=== PATIENT | female | born 1990 | race American Indian/Alaskan Native ===

== ENCOUNTER 2018-01-18 15:59 | Emergency (ER) | payer MEDICARE ==
[2018-01-18 16:07] VITALS: BP 116/72
--- NOTE | 2018-01-18 17:02 | Emergency Department Report ---
ED Rash HPI - HPI Chief Complaint: Skin Rash Stated Complaint: RASH ON LEGS/THIGHS Time Seen by Provider: 01/18/18 16:12 Duration: 1 Day Location: Lower Extremities Suspected Cause: Other (used near to shave and now has a red pruritic rash to her legs. Patient also requests that we take her Cano and 1 test on it to see what she is allergic to) Rash Symptoms: Yes Itching, No Facial Swelling, No Tongue/Oral Swelling, No Wheezing/Dyspnea, No Peeling, No Blistering, No Fever, No Lightheaded, No Malaise, No Myalgias Severity: mild ED Review of Systems ROS: Stated complaint: RASH ON LEGS/THIGHS Other details as noted in HPI Constitutional: denies: chills, fever Eyes: denies: eye pain, eye discharge, vision change ENT: denies: ear pain, throat pain Respiratory: denies: cough, shortness of breath, wheezing Cardiovascular: denies: chest pain, palpitations Endocrine: no symptoms reported Gastrointestinal: denies: abdominal pain, nausea, diarrhea Genitourinary: denies: urgency, dysuria, discharge Musculoskeletal: denies: back pain, joint swelling, arthralgia Skin: rash. denies: lesions Neurological: denies: headache, weakness, paresthesias Psychiatric: denies: anxiety, depression Hematological/Lymphatic: denies: easy bleeding, easy bruising ED Past Medical Hx - Past Medical History Hx Congestive Heart Failure: No Hx Diabetes: No Hx Headaches / Migraines: Yes (migraines) Hx Asthma: No Hx COPD: No - Surgical History Past Surgical History?: No - Social History Smoking Status: Never Smoker Substance Use Type: None - Medications Home Medications: Home Medications Medication Instructions Recorded Confirmed Last Taken Type Docusate Sodium [Colace] 100 mg PO BID PRN #60 capsule 05/09/17 Unknown Rx Ibuprofen [Motrin] 800 mg PO Q8HR PRN #60 tablet 05/09/17 Unknown Rx Oxycodone HCl/Acetaminophen 1 each PO Q6HR PRN #45 tablet 05/09/17 Unknown Rx [Percocet 7.5/325 mg] Chlorhexidine Gluconate [Hibiclens] 10 ml TP BID #240 liquid 01/18/18 Unknown Rx Mometasone Furoate [Elocon] 45 gm TP BID #1 cream..g. 01/18/18 Unknown Rx Mupirocin [Bactroban 2%] 15 applic TP TID #15 gm 01/18/18 Unknown Rx Rash Exam - Exam General: Vital signs noted. No distress. Alert and acting appropriately. HEENT: No Periorbital Edema, No Conjuctival Injection, No Chemosis, No Perioral Edema, No Tongue Edema, No Uvular Edema, No Compromised Airway, No Drooling Lungs: Yes Good Air Exchange (Normal Breath Sounds), No Wheezes, No Ronchi, No Stridor, No Cough, No Labored Respirations, No Retractions, No Use of Accessory Muscles, No Other Abnormal Lung Sounds Heart: Yes Regular, No Murmur Skin: Yes Erythema, Yes Other (erythematous, follicular rash to the legs), No Bulla(e), No Excoriations, No Weeping Other: Positive: Abdomen Normal, Neurologic Normal, Musculoskeletal Normal ED Course Vital Signs 01/18/18 16:05 Temperature 99.0 F Pulse Rate 84 Respiratory 18 Rate Blood Pressure 116/72 O2 Sat by Pulse 98 Oximetry Critical care attestation.: If time is entered above; I have spent that time in minutes in the direct care of this critically ill patient, excluding procedure time. ED Disposition Clinical Impression: Rash Disposition: DC-01 TO HOME OR SELFCARE Is pt being admited?: No Does the pt Need Aspirin: No Condition: Stable Instructions: Folliculitis (ED), Acute Rash (ED) Referrals: [facility] [Provider Group] - 3-5 Days
== END 2018-01-18 17:16 | disposition home or self-care (01) ==
LOC: ED 15:59
DX: R21 Rash and other nonspecific skin eruption (principal); L29.9 Pruritus, unspecified; G43.909 Migraine, unspecified, not intractable, without status migrainosus
CPT/HCPCS: 99282

== ENCOUNTER 2020-07-18 17:52 | Emergency (ER) | payer MEDICARE ==
[2020-07-18 18:23] VITALS: BP 111/63
--- NOTE | 2020-07-18 19:50 | Event Note ---
ED Screening Note Date of service: 07/18/20 Time: 19:48 ED Screening Note: 29-year-old female (; 17 weeks gestation) presents emergency department with complaints of nausea and vomiting for 2 days. Patient states this has been a recurring issue for her throughout her ; however, the Phenergan her [facility] prescribed has been ineffective in relieving her symptoms. She is scheduled to return to her [facility] on July 20. has otherwise been progressing normally to date. Denies fever, chills, abdominal pain, pelvic pain, vaginal bleeding, vaginal discharge, back pain, urinary symptoms. Denies all other complaints at this time. General: Awake, appropriately interactive, no acute distress. Neck: Supple. Full range of motion intact. Cardiovascular: Normal peripheral perfusion. Pulmonary: No respiratory distress. Patient is speaking normally without use of accessory muscles. Skin: No apparent rashes or lesions. Neurological: No facial asymmetry. Speech is clear. Follows commands. Patient is alert and oriented. Musculoskeletal: Moves all four extremities spontaneously with normal range of motion. Psych: Cooperative. Appropriate mood and affect. I have greeted and performed a focused rapid initial assessment of this patient. A comprehensive ED assessment and evaluation of the patient, analysis of all test results, and completion of the medical decision-making process will be conducted by additional ED providers. This initial assessment/diagnostic orders/clinical plan/treatment(s) is/are subject to change based on patients health status, clinical progression and re-assessment. Further treatment and workup at subsequent clinical provider's discretion. Patient/guardian urged not to elope from the ED as their condition may be serious if not clinically assessed and managed.
[2020-07-18 20:42] LABS: Basophils % (Auto) 0.2 % (0.0-1.8); Eosinophils % (Auto) 0.1 % (0.0-4.3); Hematocrit 34.3 % (30.3-42.9); Lymphocytes # (Auto) 1.3 K/mm3 (1.2-5.4); Lymphocytes % (Auto) 9.5 % (13.4-35.0); Mean Corpuscular HGB Conc 35 % (30-34); Mean Corpuscular Volume 94 fl (79-97); Monocytes # (Auto) 0.4 K/mm3 (0.0-0.8); Monocytes % (Auto) 3.1 % (0.0-7.3); Platelet Count 180 K/mm3 (140-440); Red Blood Count 3.67 M/mm3 (3.65-5.03); Red Cell Distribution Width 14.2 % (13.2-15.2)
[2020-07-18 21:05] LABS: Alanine Aminotransferase 109 units/L (7-56); Albumin 3.6 g/dL (3.9-5); Blood Urea Nitrogen 8 mg/dL (7-17); Calcium 9.1 mg/dL (8.4-10.2); Hemolysis Index 2
[2020-07-18 21:12] LABS: BUN/Creatinine Ratio 16
[2020-07-18] MEDS ORDERED: ONDANSETRON 4 MG ODT TAB PO ONE (21:52)
[2020-07-18 22:43] LABS: Bacteria,Urine 2+ /HPF (Negative); Bilirubin,Urine NEG (Negative); Blood,Urine NEG (Negative); Color,Urine Yellow (Yellow); Mucus,Urine 2+ /HPF; Urobilinogen,Urine < 2.0 mg/dL (<2.0)
[2020-07-18] MEDS ORDERED: FAMOTIDINE 20 MG/2 ML INJ IV ONE (22:56)
[2020-07-18] MEDS ORDERED: SODIUM CHLORIDE 0.9% 1000 ML 1,000 ML IV ONE (22:56)
--- NOTE | 2020-07-18 23:00 | Emergency Department Report ---
ED N/V/D HPI - General Chief complaint: Nausea/Vomiting/Diarrhea Stated complaint: VOMITNG Source: patient Mode of arrival: Stretcher Limitations: No Limitations - History of Present Illness Initial comments: Patient is a A0 29-year-old -[place] female who is approximately 14 weeks gestation presents to the ED with complaint of acute onset persistent intractable nausea and vomiting with diffuse abdominal pain for the last 2 days. Patient states that the symptoms initially began mildly but appeared to get worse about 12 hours ago. Patient also states that she suspects that she may have eaten stale food from a restaurant 24 hours prior to the onset of the symp toms. Patient denies diarrhea, dysuria, urinary frequency and urgency, vaginal bleeding, vaginal discharge, perineal pain, fever, chills, traumatic injury, heavy lifting, hematemesis, chest pain or shortness of breath, numbness and tingling or weakness of upper and lower extremities bilaterally. MD complaint: nausea, vomiting -: Sudden, days(s) (2) Description of Vomiting: food contents, watery, bilious Description of Diarrhea: water, mucous Associated Abdominal Pain: No Location: diffuse Radiation: none Severity: severe Pain Scale: 7 Quality: dull Consistency: intermittent Improves with: none Worsens with: none Context: possible food poisoning, other (17 weeks gestation) Associated Symptoms: denies other symptoms, loss of appetite, malaise, nausea/vomiting. denies: myalgias, chest pain, cough, diaphoresis, feve r/chills, headaches, rash, dysuria, shortness of breath, syncope, weakness - Related Data Previous Rx's Medication Instructions Recorded Last Taken Type Docusate Sodium [Colace] 100 mg PO BID PRN #60 capsule 05/09/17 Unknown Rx Ibuprofen [Motrin] 800 mg PO Q8HR PRN #60 tablet 05/09/17 Unknown Rx Oxycodone HCl/Acetaminophen 1 each PO Q6HR PRN #45 tablet 05/09/17 Unknown Rx [Percocet 7.5/325 mg] Chlorhexidine Gluconate [Hibiclens] 10 ml TP BID #240 liquid 01/18/18 Unknown Rx Mometasone Furoate [Elocon] 45 gm TP BID #1 cream..g. 01/18/18 Unknown Rx Mupirocin [Bactroban 2%] 15 applic TP TID #15 gm 01/18/18 Unknown Rx Famotidine [Pepcid] 20 mg PO BID #60 tablet 07/19/20 Unknown Rx Metoclopramide [Reglan] 10 mg PO Q8H PRN #30 tab 07/19/20 Unknown Rx Promethazine HCl [Phenergan SUPPOS] 25 mg RC Q6H PRN #20 supp.rect 07/19/20 Unknown Rx Allergies Allergy/AdvReac Type Severity Reaction Status Date / Time No Known Allergies Allergy Unverified 05/02/17 15:54 ED Review of Systems ROS: Stated complaint: VOMITNG Other details as noted in HPI Constitutional: denies: chills, fever Eyes: denies: eye pain, eye discharge, vision change ENT: denies: ear pain, throat pain Respiratory: denies: cough, shortness of breath, wheezing Cardiovascular: denies: chest pain, palpitations Endocrine: no symptoms reported Gastrointestinal: nausea, vomiting. denies: abdominal pain, diarrhea Genitourinary: denies: urgency, dysuria, discharge Musculoskeletal: denies: back pain, joint swelling, arthralgia Skin: denies: rash, lesions Neurological: denies: headache, weakness, paresthesias Psychiatric: denies: anxiety, depression Hematological/Lymphatic: denies: easy bleeding, easy bruising ED Past Medical Hx - Past Medical History Previous Medical History?: Yes Hx Congestive Heart Failure: No Hx Diabetes: No Hx Headaches / Migraines: Yes (migraines) Hx Asthma: No Hx COPD: No - Surgical History Past Surgical History?: No - Social History Smoking Status: Never Smoker Substance Use Type: None - Medications Home Medications: Home Medications Medication Instructions Recorded Confirmed Last Taken Type Docusate Sodium [Colace] 100 mg PO BID PRN #60 capsule 05/09/17 Unknown Rx Ibuprofen [Motrin] 800 mg PO Q8HR PRN #60 tablet 05/09/17 Unknown Rx Oxycodone HCl/Acetaminophen 1 each PO Q6HR PRN #45 tablet 05/09/17 Unknown Rx [Percocet 7.5/325 mg] Chlorhexidine Gluconate [Hibiclens] 10 ml TP BID #240 liquid 01/18/18 Unknown Rx Mometasone Furoate [Elocon] 45 gm TP BID #1 cream..g. 01/18/18 Unknown Rx Mupirocin [Bactroban 2%] 15 applic TP TID #15 gm 01/18/18 Unknown Rx Famotidine [Pepcid] 20 mg PO BID #60 tablet 07/19/20 Unknown Rx Metoclopramide [Reglan] 10 mg PO Q8H PRN #30 tab 07/19/20 Unknown Rx Promethazine HCl [Phenergan SUPPOS] 25 mg RC Q6H PRN #20 supp.rect 07/19/20 Unknown Rx ED Physical Exam - General Limitations: No Limitations General appearance: alert, in no apparent distress - Head Head exam: Present: atraumatic, normocephalic, normal inspection - Eye Eye exam: Present: normal appearance, PERRL, EOMI Pupils: Present: normal accommodation - ENT ENT exam: Present: normal exam, normal orophraynx, mucous membranes moist, TM's normal bilaterally, normal external ear exam - Neck Neck exam: Present: normal inspection, full ROM - Respiratory Respiratory exam: Present: normal lung sounds bilaterally. Absent: respiratory distress, wheezes, rales, rhonchi, chest wall tenderness, accessory muscle use, decreased breath sounds - Cardiovascular Cardiovascular Exam: Present: regular rate, normal rhythm, normal heart sounds. Absent: systolic murmur, diastolic murmur, rubs, gallop - GI/Abdominal GI/Abdominal exam: Present: soft, normal bowel sounds, other (Gravid abdomen). Absent: tenderness, guarding, rebound - Extremities Exam Extremities exam: Present: normal inspection, full ROM, normal capillary refill - Back Exam Back exam: Present: normal inspection, full ROM. Absent: tenderness, CVA tenderness (R), CVA tenderness (L), muscle spasm, paraspinal tenderness, vertebral tenderness - Neurological Exam Neurological exam: Present: alert, oriented X3, CN II-XII intact, normal gait, reflexes normal - Psychiatric Psychiatric exam: Present: normal affect, normal mood - Skin Skin exam: Present: warm, dry, intact, normal color. Absent: rash ED Course Vital Signs 07/18/20 07/19/20 18:20 03:00 Temperature 98.0 F Pulse Rate 89 79 Respiratory 17 17 Rate Blood Pressure 111/63 [Right] O2 Sat by Pulse 98 99 Oximetry ED Medical Decision Making - Lab Data Result diagrams: 07/18/20 20:22 07/18/20 20:22 - Medical Decision Making This is a A0 29-year-old -[place] female who is approximately 14 weeks gestation presents to the ED with complaint of acute onset persistent intractable nausea and vomiting with diffuse abdominal pain for the last 2 days. Patient states that the symptoms initially began mildly but appeared to get worse about 12 hours ago. Patient also states that she suspects that she may have eaten stale food from a restaurant 24 hours prior to the onset of the symptoms. In the ED, patient is alert and oriented x3 and is not in any distress. Patient was treated in the ED with antiemetics, normal saline 1 L IV bolus x1 and Tylenol. Lab test results were reviewed and are all nonactionable except for acute leukocytosis of 13,300, AST of 62 and ALT of 109. The rest of the lab test results are nonactionable. Based on the history and physical exam findings as well as lab test results, the patient symptoms are likely due to viral gastroenteritis complicated by patient status. On reevaluation, patient's nausea and vomiting resolved with medications. Patient passed oral food challenge in the ED. Patient will discharge home on medications including antiemetics and antacids and was advised to maintain a clear liquid diet for 12 to 24 hours, while taking medications and drinking fluids. Patient was advised to follow-up with her [facility] physician or primary care physician in 3 to 5 days for reevaluation or return to the ED immediately if symptoms get worse. - Differential Diagnosis Dehydration; GERD; UTI; Gastritis; hyperemesis Critical care attestation.: If time is entered above; I have spent that time in minutes in the direct care of this critically ill patient, excluding procedure time. ED Disposition Clinical Impression: Viral gastroenteritis, Hyperemesis gravidarum, Intractable nausea and vomiting Disposition: DC- TO HOME OR SELFCARE Is pt being admited?: No Does the pt Need Aspirin: No Condition: Stable Instructions: Viral Gastroenteritis, Adult, [id number], Hyperemesis Gravidar um, Morning Sickness, [id number] Additional Instructions: All lab test results were reviewed and are all nonactionable. Therefore maintain a clear liquid diet for 12-24 hrs., drink plenty of fluids and take medication as advised. Return to the ED immediately if symptoms get worse. Otherwise follow-up with your [facility] physician and primary care physician in 3 to 5 days for reevaluation. Return to the ED immediately if symptoms get worse. Prescriptions: Famotidine [Pepcid] 20 mg PO BID #60 tablet Promethazine HCl [Phenergan SUPPOS] 25 mg RC Q6H PRN #20 supp.rect PRN Reason: Nausea Metoclopramide [Reglan] 10 mg PO Q8H PRN #30 tab PRN Reason: Nausea Referrals: MARIO ALBERTO WOLFF MD [Staff Physician] - 3-5 Days Time of Disposition: 02:27 Print Language: FRENCH
[2020-07-18] MEDS ORDERED: PROCHLORPERAZINE EDISYLATE 10 MG/2 ML VIAL IV ONE (23:56)
== END 2020-07-19 03:00 | disposition home or self-care (01) ==
LOC: ED 17:52
DX: O21.0 Mild hyperemesis gravidarum (principal); O99.611 Diseases of the digestive system complicating pregnancy, first trimester; A08.4 Viral intestinal infection, unspecified; G43.909 Migraine, unspecified, not intractable, without status migrainosus; Z3A.14 14 weeks gestation of pregnancy; Z79.1 Long term (current) use of non-steroidal anti-inflammatories (NSAID); Z79.899 Other long term (current) drug therapy
CPT/HCPCS: 36415; 80053; 81001; 83735; 84702; 85025; 96361; 96374; 96375; 99284; J0780; J7030; Q0162

== ENCOUNTER 2020-11-27 19:14 | Outpatient (CLI) | payer MEDICARE ==
[2020-11-27 19:43] VITALS: BP 120/84
[2020-11-27] MEDS ORDERED: LACTATED RINGERS 1,000 ML IV ONE (19:54)
[2020-11-27] MEDS ORDERED: ACETAMINOPHEN W/CODEINE 300-30 MG TAB PO ONE (21:12)
[2020-11-27] MEDS ORDERED: hydrOXYzine PAMOATE 25 MG CAP PO ONE (21:12)
== END 2020-11-27 21:40 | disposition home or self-care (01) ==
LOC: TRG 19:14 → APU 19:17 → TRG 21:40
PROVIDERS: ATTEND Obstetrics & Gynecology
DX: O26.893 Other specified pregnancy related conditions, third trimester (principal); R10.9 Unspecified abdominal pain; Z3A.36 36 weeks gestation of pregnancy
CPT/HCPCS: 59025; 96360; J7120; Q0177